=== PATIENT | female | born 1965 | race Hispanic/Latino ===

== ENCOUNTER 2023-05-19 15:20 | Emergency (ER) | payer OTHER ==
[~2023-05-19] VITALS: Ht 157.5 cm; Wt 102.1 kg
[2023-05-19 15:22] VITALS: BP 162/82; PULSE 91; RESP 20; O2SAT 99
[2023-05-19] MEDS ORDERED: CYCLOBENZAPRINE HCL 10 MG TABLET PO ONE (18:00)
[2023-05-19] MEDS ORDERED: HYDROCODONE/ACETAMINOPHEN 5/325 MG TAB PO ONE (18:00)
[2023-05-19] MEDS ORDERED: TETANUS/DIPHTHERIA TOXOID [ADULT] 0.5 ML VIAL IM ONE (18:00)
[2023-05-19] MEDS ORDERED: CYCL5TAB PO (19:31)
[2023-05-19] MEDS ORDERED: IBUP-2070 PO (19:31)
== END 2023-05-19 19:45 | disposition home or self-care (01) ==
LOC: EDH 15:20
DX: S16.1XXA Strain of muscle, fascia and tendon at neck level, initial encounter (principal); S50.811A Abrasion of right forearm, initial encounter; Z88.0 Allergy status to penicillin; Z88.8 Allergy status to other drugs, medicaments and biological substances; V89.2XXA Person injured in unspecified motor-vehicle accident, traffic, initial encounter; Y93.I9 Activity, other involving external motion; Y92.488 Other paved roadways as the place of occurrence of the external cause; Y99.8 Other external cause status
CPT/HCPCS: 71045; 72125; 90471; 90714